=== PATIENT | female | born 2005 | race Hispanic/Latino ===

== ENCOUNTER 2025-04-24 17:22 | Inpatient (IN) | payer BC ==
[~2025-04-24 17:22] MED LIST: Bupivacaine 0.25% HCL 30 ML VIAL ONE; Bupivacaine HCl 0.5%/Epinephrine 1:200,000/PF 30 ml Vial ONE
[2025-04-24 17:58] VITALS: BMI 30.7
[2025-04-24 18:38] LABS: Glucose, Urine (Dipstick) Normal (Negative); Leukocyte Negative (Negative); Protein, Urine (Dipstick) 500 mg/dl (Neg-Trace); Specific Gravity, Urine 1.020 (1.005-1.030)
[2025-04-24 18:57] LABS: #Basophils 0.06 10x3/uL (0.0-0.2); #Eosinophils 0.10 10x3/uL (0.0-0.5); #Monocytes 0.98 10x3/uL (0.0-1.1); #Neutrophils 9.37 10x3/uL (1.5-8.4); %Basophils 0.5 % (0.0-2.0); %Eosinophils 0.8 % (0.0-6.0); %Lymphocytes 16.4 % (18.0-47.0); %Monocytes 7.7 % (0.0-10.0); %Neutrophils 74.0 % (40.0-75.0); Hematocrit 37.3 % (34.9-44.5); Hemoglobin 12.5 g/dL (12.0-15.5); Mean Corpuscular Hemoglobin 29.6 pg (27.0-33.0); Mean Corpuscular Volume 88.4 fL (81.6-98.3); Platelet Count 246 10x3/uL (150-450); Red Blood Cell (RBC) Count 4.22 10x6/uL (3.90-5.03); White Blood Cell (WBC) Count 12.66 10x3/uL (3.5-10.5)
[2025-04-24 19:02] LABS: Bacteria/HPF 3+ HPF (None Seen); CAUTI Indications for Culture Pelvic or flank pain; Mucous/LPF 4+ LPF (<2+); RBC/HPF 0-3 HPF (0-3); Urine Culture Reflex No No; WBC/HPF 0-3 HPF (0-3)
[2025-04-24] MEDS ORDERED: Acetaminophen 500 MG TAB PO PRN (19:10)
[2025-04-24] MEDS ORDERED: Calcium Gluc 4.6 MEQ/10 ML (100 MG/ML) SLOW IVP PRN (19:10)
[2025-04-24] MEDS ORDERED: Lidocaine 1% (PF) 30 ML VIAL SC PRN (19:10)
[2025-04-24] MEDS ORDERED: hydrALAZINE 20 MG/ML VIAL SLOW IVP PRN (19:10)
[2025-04-24] MEDS ORDERED: Ondansetron PF 4 MG/2 ML Vial IVP PRN ×2 (19:10→23:09)
[2025-04-24 19:12] LABS: ALT (SGPT) 15 U/L (Less than 34); AST (SGOT) 18 U/L (11-34); Albumin 2.6 g/dL (3.1-4.5); Alkaline Phosphatase 315 U/L (40-110); Anion Gap 11 mmol/L (10-20); BUN (Urea Nitrogen) 8 mg/dL (7.0-18.7); Bilirubin, Total 0.1 mg/dL (0.3-1.2); Calc. Creatinine Clearance 192 mL/min (70-130); Calcium 8.8 mg/dL (7.8-10.44); Carbon Dioxide 21 mmol/L (22-29); Chloride 110 mmol/L (98-107); Globulin 3.6 g/dL (2.4-3.5); Glucose 87 mg/dL (70-105); Potassium 4.0 mmol/L (3.5-5.1); Sodium 138 mmol/L (136-145)
[2025-04-24] MEDS ORDERED: Oxytocin 30 units/NS 500 ML 500 ML IV SCH (19:15)
[2025-04-24 19:30] LABS: Protein, Urine Random Quant 1536.0 mg/dL (1-14)
[2025-04-24] MEDS: hydrALAZINE 20 MG/ML VIAL ONE (19:31)
[2025-04-24] MEDS: Magnesium Sulfate 20 gm/500 ml 20 GM/500 ML BAG ONE (19:33)
[2025-04-24] MEDS: hydrALAZINE 20 MG/ML VIAL SLOW IVP PRN (20:36)
[2025-04-24 21:25] LABS: Syphilis Antibody Index 0.08 S/CO (<1.00 Non-Reactive)
[2025-04-24 21:26] LABS: Hep B Surf Ag - L&D Non-Reactive S/CO (NonReactive)
[2025-04-24 21:59] LABS: Fetal Membranes Rupture No Membranes Rupture (No Rupture)
[2025-04-24] MEDS: fentaNYL/Ropivacaine Epidural 100 ML ONE (23:00)
[2025-04-24] MEDS ORDERED: Acetaminophen 325 MG TAB PO PRN (23:09)
[2025-04-24] MEDS ORDERED: diphenhydrAMINE 50 MG/ML VIAL IVP PRN (23:09)
[2025-04-24] MEDS ORDERED: fentaNYL 2 mcg/Ropivacaine 0.2% Epidural 100 ML CADD EPIDURAL SCH (23:15)
[2025-04-24] MEDS ORDERED: Communication Order-Pharmacy FS SCH (23:15)
[2025-04-24] MEDS: Oxytocin 30 units/NS 500 ML 500 ML IV SCH (23:39)
[2025-04-25] MEDS: Magnesium Sulfate 20 gm/500 ml 20 GM/500 ML BAG IVPB SCH (04:21)
[2025-04-25] MEDS: hydrALAZINE 20 MG/ML VIAL SLOW IVP PRN (10:56)
[2025-04-25] MEDS: NIFEdipine XL 30 MG ER.TAB PO SCH (13:12)
[2025-04-25] MEDS ORDERED: Ibuprofen 800 MG TAB PO PRN (13:52)
[2025-04-26] MEDS: NIFEdipine XL 30 MG ER.TAB PO SCH (08:41)
[2025-04-27 07:40] VITALS: BP 134/80; TEMP 98
== END 2025-04-27 11:10 | disposition home or self-care (01) | DRG 807 ==
LOC: CSHLD/OP 17:22 → CSHLD 19:17 → CSHPP 04-26 09:39
PROVIDERS: ADMIT Obstetrics & Gynecology; ATTEND Obstetrics & Gynecology
PROC: 10E0XZZ Delivery of Products of Conception, External Approach (ICD-10-PCS; principal; 2025-04-25)
PROC: 0KQM0ZZ Repair Perineum Muscle, Open Approach (ICD-10-PCS; 2025-04-25)
PROC: 0UQMXZZ Repair Vulva, External Approach (ICD-10-PCS; 2025-04-25)
DX: O14.14 Severe pre-eclampsia complicating childbirth (principal); Z37.0 Single live birth; Z3A.37 37 weeks gestation of pregnancy; O70.1 Second degree perineal laceration during delivery
CPT/HCPCS: 36415; 51702; 80053; 81001; 82570; 84112; 84156; 85025; 86780; 86850; 86900; 86901; 87340; 99285; J0360; J0665; J2590; J3475; J7120